=== PATIENT | female | born 1990 | race Caucasian/White ===

== ENCOUNTER 2018-12-05 13:04 | Emergency (ER) | payer OTHER ==
[2018-12-05 13:22] VITALS: BP 117/74
[2018-12-05] MEDS ORDERED: Ibuprofen TAB* 600 MG PO ONE (13:25)
--- NOTE | 2018-12-05 13:57 | UC ---
Throat Pain/Nasal Nagi HPI - HPI Summary HPI Summary: 28-year-old female presents with sore throat, congestion and headache. Patient states she migraine yesterday, which was pressure-like and resolved. This morning woke up with a sore throat, as well as a tension like headache behind her eyes. Patient states that she also has congestion, runny nose. She did not take anything at home. No cough, vomiting, diarrhea. - History of Current Complaint Chief Complaint: UCGeneralIllness Stated Complaint: SORE THROAT Time Seen by Provider: 12/05/18 13:24 Hx Last Menstrual Period: 12/05/18 Pain Intensity: 6 - Allergies/Home Medications Allergies/Adverse Reactions: Allergies Allergy/AdvReac Type Severity Reaction Status Date / Time No Known Allergies Allergy Verified 12/05/18 13:22 Home Medications: Home Medications NK [No Home Medications Reported] 12/05/18 [History Confirmed 12/05/18] Nuvaring Vaginal Ring 1 vag ring VAGINAL 12/05/18 [History] PMH/Surg Hx/FS Hx/Imm Hx Previously Healthy: Yes - Surgical History Surgical History: Yes Surgery Procedure, Year, and Place: mole removed - Family History Known Family History: Positive: Non-Contributory - Social History Occupation: Student Alcohol Use: Occasionally Substance Use Type: None Smoking Status (MU): Never Smoked Tobacco Review of Systems All Other Systems Reviewed And Are Negative: Yes Constitutional: Positive: Fatigue ENT: Positive: Sore Throat, Nasal Discharge, Sinus Congestion Neurological: Positive: Headache Physical Exam - Summary Physical Exam Summary: General: Well appearing, no distress HEENT: + cervical LAD, erythema of the posterior oropharynx, postnasal drip, status post tonsillectomy. No nuchal rigidity Cardiovascular: Skin is well perfused Pulmonary: No respiratory distress, no tachypnea Abdomen: Non-distended Skin: Warm, pink, dry MSK: no edema Psych: Normal affect Neuro: A&Ox3 Vital Signs: Initial Vital Signs Temp 35.2 C 12/05/18 13:19 Pulse 100 12/05/18 13:19 Resp 20 12/05/18 13:19 BP 117/74 12/05/18 13:19 Pulse Ox 100 12/05/18 13:19 Throat Pain/Nasal Course/Dx - Course Course Of Treatment: 28-year-old female presents with sinus congestion, sore throat, headache and low -grade fever Physical exam with erythema of the posterior oropharynx, status post tonsillectomy Suspect URI. Centor criteria 1. Discussed with patient that she should improve over the next several days however she feels worse, she should return back to urgent care follow up with her primary care doctor. - Differential Dx/Diagnosis Provider Diagnosis: URI (upper respiratory infection) Discharge - Sign-Out/Discharge Documenting (check all that apply): Patient Departure All imaging exams completed and their final reports reviewed: No Studies - Discharge Plan Condition: Stable Disposition: HOME Patient Education Materials: Pharyngitis (ED), Upper Respiratory Infection (ED) Referrals: No Primary Care Phys,NOPCP [Primary Care Provider] - Additional Instructions: You were seeen at urgent care for sore throat congestion and a headache. You can take Motrin 600 mg every 8 hours, and Tylenol 500 mg every 8 hours. You should start to feel better however if you feel worse in the next few days, have continued fevers, worsening congestion or sore throat please return to urgent care, or your primary care doctor. If any lab work or imaging was not completed at the time of discharge, you will be called with any relevant results. Please seek medical attention or go to the emergency department for any worsening or concerning symptoms. Please follow up with your primary care doctor in 2-3 days. It was a pleasure taking care of you today. - Billing Disposition and Condition Condition: STABLE Disposition: Home
== END 2018-12-05 13:58 | disposition home or self-care (01) ==
LOC: UCEAST 13:04
DX: J06.9 Acute upper respiratory infection, unspecified (principal); R51 Headache
CPT/HCPCS: 99201; A9270-GY; G0463

== ENCOUNTER 2018-12-07 07:33 | Emergency (ER) | payer OTHER ==
[2018-12-07 07:46] VITALS: BP 107/65
--- NOTE | 2018-12-07 07:50 | UC ---
Throat Pain/Nasal Nagi HPI - HPI Summary HPI Summary: Patient is 28 year old F , who present today to the urgent care withsore throat for past3 days. She was seen here on 12/05, treated as viral. Now feels her symptoms getting worse, had fever yesterday, did not measure. No cough but has sore throay, painful swallowing and swollen glands. Denies an chest pain or shortness of breath . No diaphoresis. Denies any abdominal pain , nausea or vomiting , diarrhea or constipation. - History of Current Complaint Chief Complaint: UCRespiratory Stated Complaint: SORE THROAT Time Seen by Provider: 12/07/18 07:41 Hx Obtained From: Patient Hx Last Menstrual Period: current ?: No Pain Intensity: 7 - Allergies/Home Medications Allergies/Adverse Reactions: Allergies Allergy/AdvReac Type Severity Reaction Status Date / Time No Known Allergies Allergy Verified 12/07/18 07:45 Home Medications: Home Medications Acetaminophen TAB* [Tylenol TAB*] 650 mg PO Q4H PRN 12/07/18 [History Confirmed 12/07/18] Ibuprofen TAB* [Advil TAB*] 600 mg PO Q6H PRN 12/07/18 [History Confirmed ] Phenol/Glycerin [Chloraseptic Max Sore Thr] 1 spr MT Q6H PRN 12/07/18 [History Confirmed 12/07/18] guaiFENesin ER TAB [Mucinex*] 600 mg PO BID PRN 12/07/18 [History Confirmed ] PMH/Surg Hx/FS Hx/Imm Hx - Additional Past Medical History Additional PMH: Past Medical History : None Past Surgical History:tonsillectomy , mole. Family History : non contributory Social History : Occasional alcohol, non smoker, no drug use.she is a vetenerian Previously Healthy: Yes - Surgical History Surgical History: Yes Surgery Procedure, Year, and Place: mole removed, tonsillectomy - Family History Known Family History: Positive: Non-Contributory - Social History Alcohol Use: Occasionally Substance Use Type: None Smoking Status (MU): Never Smoked Tobacco Review of Systems All Other Systems Reviewed And Are Negative: Yes Constitutional: Positive: Fever Eyes: Positive: Negative ENT: Positive: Negative, Sore Throat Respiratory: Positive: Negative. Negative: Cough Cardiovascular: Positive: Negative. Negative: Chest Pain Gastrointestinal: Positive: Negative Genitourinary: Positive: Negative Motor: Positive: Negative Neurovascular: Positive: Negative Musculoskeletal: Positive: Negative Neurological: Positive: Negative Psychological: Positive: Negative Is Patient Immunocompromised?: No Physical Exam - Summary Physical Exam Summary: Physical Exam: Const: Appears well. No signs of apparent distress present. Alert and oriented x 3. Musculo: Walks with a normal gait. Head/Face: Atraumatic, normocephalic on inspection. Eyes: EOMI and PERRLA in both eyes. Conjunctivae clear. No discharge noted ENT: Hearing normal, TM normal appearing bilaterally, non bulging, fluid noted on left side. No tenderness to palpation on maxillary and frontal sinus. There is pharyngeal erythema, no exudates . s/p tonsillectomy . Uvula is midline. There is bilateral submandibular lymphadenopathy noted. Respiratory: Respirations are unlabored. Lungs clear to auscultation bilaterally, no wheezing , rhonchi or rales noted . CVS: Regular rate and Rhythm, S1S2 normal , no murmurs identified. Extremities: Peripheral circulation is grossly normal. Pulses 2+ Abdomen : Soft non tender , nondistended , Bowel sounds present . No guarding , rebound tenderness or rigidity noted. Skin: No lesions or rash located on the upper extremities or on the lower extremities. Neuro: Cranial nerves II to XII intact, motor and sensory intact. DTR Intact bilaterally. Mood is normal. Affect is normal. Triage Information Reviewed: Yes Vital Signs: Initial Vital Signs Temp 97.7 F 12/07/18 07:41 Pulse 91 12/07/18 07:41 Resp 16 12/07/18 07:41 BP 107/65 12/07/18 07:41 Pulse Ox 97 12/07/18 07:41 Vital Signs Reviewed: Yes Throat Pain/Nasal Course/Dx - Course Course Of Treatment: During the visit today, we obtainedrapid strep test is neg . We discussed the findings and further plan. I will prescribe the antibiotic to the pharmacy and she will fill it if no better over next 2 days. Patient expressed understanding . - Differential Dx/Diagnosis Provider Diagnosis: Viral pharyngitis Discharge - Sign-Out/Discharge Documenting (check all that apply): Patient Departure All imaging exams completed and their final reports reviewed: No Studies - Discharge Plan Condition: Stable Disposition: HOME Prescriptions: Amoxicillin PO (*) [Amoxicillin 500 MG CAP*] 500 mg PO BID 10 Days #20 cap Patient Education Materials: Viral Syndrome (ED) Referrals: No Primary Care Phys,NOPCP [Primary Care Provider] - Additional Instructions: Please start taking the medication as prescribed to the pharmacy if no better in 2 days- delayed fill . supportive treatment- gargles, , tylenol or ibuprofen as needed.maintain hydration. Follow up with your primary care doctor in 2 - 3 days. Return to Urgent care / ER if symptoms get worse. - Billing Disposition and Condition Condition: STABLE Disposition: Home
== END 2018-12-07 08:22 | disposition home or self-care (01) ==
LOC: UCEAST 07:33
DX: J02.8 Acute pharyngitis due to other specified organisms (principal)
CPT/HCPCS: 87651; 99212; G0463